=== PATIENT | male | born 1935 | race Caucasian/White ===

== ENCOUNTER 2017-11-09 15:20 | Emergency (ER) | payer OTHER ==
--- NOTE | 2017-11-09 15:48 | PDOC ---
History of Present Illness - General Chief Complaint: Pain, Acute Stated Complaint: LOWER ABD PAIN Time Seen by Provider: 11/09/17 15:25 History Source: Patient, Family Exam Limitations: No Limitations - History of Present Illness Initial Comments: 11/09/17 16:53 Patient is an 82-year-old male with past medical history of HTN, HLD, anxiety, CVA with residual right-sided weakness, who presents to the emergency department today complaining of lower abdominal pain. Patient states that his pain started 3 days ago. Patient admits that he has not been able to defecate the past 3 days and he feels that he is constipated. Patient is also being treated for a UTI at this time with Cipro. Denies nausea, vomiting, fevers, chills, frequency, urgency, hematuria, chest pain and shortness of breath. Past History - Travel Traveled outside of the country in the last 30 days: No Close contact w/someone who was outside of country & ill: No - Past Medical History Allergies/Adverse Reactions: Allergies Allergy/AdvReac Type Severity Reaction Status Date / Time No Known Allergies Allergy Verified 11/09/17 15:53 Home Medications: Ambulatory Orders Atorvastatin Calcium 20 mg PO DAILY 11/09/17 Candesartan/Hydrochlorothiazid [Atacand Hct 32-25 mg -] PO DAILY 11/09/17 Ciprofloxacin [Cipro (Restricted To Id)] 500 mg PO Q12H 11/09/17 Labetalol HCl [Normodyne -] 200 mg PO BID 11/09/17 Meloxicam 15 mg PO DAILY 11/09/17 Patient's Own Medication [Patient's Own Med (Nf) -] 1 tab PO BID 11/09/17 Polyethylene Glycol 3350 [Miralax (For Daily Use) -] 17 gm PO DAILY #1 bottle Sertraline HCl 25 mg PO DAILY 11/09/17 - Suicide/Smoking/Psychosocial Hx Smoking History: Never smoked Have you smoked in the past 12 months: No Information on smoking cessation initiated: No Hx Alcohol Use: No Drug/Substance Use Hx: No Review of Systems - Review of Systems Able to Perform ROS?: Yes Comments:: 11/09/17 16:36 CONSTITUTIONAL: Absent: fever, chills, diaphoresis, generalized weakness, malaise, loss of appetite HEENT: Absent: rhinorrhea, nasal congestion, throat pain, throat swelling, difficulty swallowing, mouth swelling, ear pain, eye pain, visual Changes CARDIOVASCULAR: Absent: chest pain, loss of consciousness, palpitations, irregular heart rate, peripheral edema RESPIRATORY: Absent: cough, shortness of breath, dyspnea with exertion, orthopnea, wheezing, stridor, hemoptysis GASTROINTESTINAL: Present: Lower abdominal pain, constipation. Absent: abdominal distension, nausea, vomiting, diarrhea, melena, hematochezia GENITOURINARY: Absent: dysuria, frequency, urgency, hesitancy, hematuria, flank pain, genital pain MUSCULOSKELETAL: Absent: myalgia, arthralgia, joint swelling SKIN: Absent: rash, itching, pallor HEMATOLOGIC/IMMUNOLOGIC: Absent: easy bleeding, easy bruising, lymphadenopathy, frequent infections ENDOCRINE: Absent: unexplained weight gain, unexplained weight loss, heat intolerance, cold intolerance NEUROLOGIC: Absent: headache, focal weakness or paresthesias, dizziness, unsteady gait, seizure, mental status changes, bladder or bowel incontinence PSYCHIATRIC: Absent: anxiety, depression, suicidal or homicidal ideation, hallucinations. Is the patient limited Swedish proficient: No *Physical Exam - Vital Signs Last Vital Signs Temp Pulse Resp BP Pulse Ox 98.2 F 56 L 16 148/126 100 11/09/17 15:43 11/09/17 15:43 11/09/17 15:43 11/09/17 15:43 11/09/17 15:43 - Physical Exam Comments: 11/09/17 16:42 GENERAL: Well developed, well nourished. Awake and alert. No acute distress. HEENT: Normocephalic, atraumatic. PERRLA, EOMI. No conjunctival pallor. Sclera are non- icteric. Moist mucous membranes. Oropharynx is clear. NECK: Supple. Full ROM. No JVD. Carotid pulses 2+ and symmetric, without bruits. No thyromegaly. No lymphadenopathy. CARDIOVASCULAR: Regular rate and rhythm. No murmurs, rubs, or gallops. Distal pulses are 2+ and symmetric. PULMONARY: No evidence of respiratory distress. Lungs clear to auscultation bilaterally. No wheezing, rales or rhonchi. ABDOMINAL: TTP of the lower abdomen LLQ, suprapubic tenderness, RLQ. Abdomen mildly distended. Soft. No rebound or guarding. No organomegaly. Normoactive bowel sounds. MUSCULOSKELETAL Normal range of motion at all joints. No bony deformities or tenderness. No CVA tenderness. EXTREMITIES: No cyanosis. No clubbing. No edema. No calf tenderness. SKIN: Warm and dry. Normal capillary refill. No rashes. No jaundice. NEUROLOGICAL: Alert, awake, appropriate. Cranial nerves 2-12 intact. No deficits to light touch and temperature in face, upper extremities and lower extremities. No motor deficits in the in face, upper extremities and lower extremities. Normoreflexic in the upper and lower extremities. Normal speech. Toes are down- going bilaterally. Gait is normal without ataxia. PSYCHIATRIC: Cooperative. Good eye contact. Appropriate mood and affect. ED Treatment Course - LABORATORY CBC & Chemistry Diagram: 11/09/17 16:20 11/09/17 18:45 Medical Decision Making - Medical Decision Making 11/09/17 16:56 Patient is an 82-year-old male with past medical history of HTN, HLD, anxiety, CVA with residual right-sided weakness, who presents to the emergency department today complaining of lower abdominal pain. Given that the patient has not defecated in 3 days probable constipation at this time. However given abdominal distention and pain we'll obtain CT scan of abdomen and pelvis to rule out SBO, diverticulitis, stones. Basic labs drawn, morphine administered for pain, enema for constipation, and fluids started. We'll reevaluate. 11/09/17 19:00 Pain management with morphine at this time. Patient was able to drink contrast material. Currently waiting for BUN/creatinine to come back prior to sending patient to CAT scan. Case discussed with JANYE Doty for signout. Will follow CT and administer enema after CT is done. *DC/Admit/Observation/Transfer Diagnosis at time of Disposition: Constipation Qualifiers: Constipation type: unspecified constipation type Qualified Code(s): K59.00 - Constipation, unspecified - Discharge Dispostion Disposition: HOME Condition at time of disposition: Stable - Prescriptions Prescriptions: Polyethylene Glycol 3350 [Miralax (For Daily Use) -] 17 gm PO DAILY #1 bottle - Referrals - Patient Instructions Printed Discharge Instructions: DI for Constipation Additional Instructions: Follow up with Dr. Torres in 1-2 days, return to the ED if worsening. Take a laxitive for the constipation, take some fiber in your diet daily to prevent the constipation. - Post Discharge Activity
[2017-11-09] MEDS ORDERED: ONDANSETRON 4 MG/2 ML VIAL IVPUSH ONE (15:49)
[2017-11-09] MEDS ORDERED: morphine SULFATE 4 MG/ML VIAL IVPUSH ONE (15:49)
[2017-11-09] MEDS ORDERED: SODIUM CHLORIDE 1,000 ML IV STA (15:49)
[2017-11-09] MEDS ORDERED: MINERAL OIL ENEMA 133 ML ENEMA PR ONE (15:50)
[2017-11-09] MEDS ORDERED: morphine SULFATE 4 MG/ML VIAL ONE (15:55)
[2017-11-09] MEDS ORDERED: ONDANSETRON 4 MG/2 ML VIAL ONE (15:55)
[2017-11-09 15:57] VITALS: BMI 20.7
[2017-11-09 16:31] LABS: BASO % 0.7 % (0-2.0); EOS % 3.7 % (0-4.5); HEMATOCRIT 40.7 % (35.4-49); HEMOGLOBIN 13.8 GM/dL (11.7-16.9); LYMPH % 27.7 % (8-40); MCH 29.3 pg (25.7-33.7); MCHC 33.9 g/dl (32.0-35.9); MEAN CELL VOLUME 86.4 fl (80-96); MEAN PLT VOLUME 9.9 fl (7.5-11.1); MONO % 7.6 % (3.8-10.2); NEUT % 60.3 % (42.8-82.8); PLATELET COUNT 156 K/MM3 (134-434); RBC 4.71 M/mm3 (4.00-5.60); RDW 14.7 % (11.9-15.9); WHITE BLOOD COUNT 7.5 K/mm3 (4.0-10.0)
[2017-11-09 16:42] LABS: INR 1.08 (0.82-1.09); PROTHROMBIN TIME (PATIENT) 12.2 SEC (9.7-13.0)
[2017-11-09 16:51] LABS: URINE APPEARANCE CLEAR; URINE BILIRUBIN NEGATIVE (<2.0 mg/dL); URINE COLOR COLORLESS; URINE GLUCOSE (UA) NEGATIVE (NEGATIVE); URINE KETONE NEGATIVE (NEGATIVE); URINE LEUK ESTERASE NEGATIVE (NEGATIVE); URINE NITRITE NEGATIVE (NEGATIVE); URINE PROTEIN NEGATIVE (NEGATIVE); URINE UROBILINOGEN NEGATIVE mg/dL (0.2-1.0)
[2017-11-09 19:36] LABS: ALBUMIN 3.3 g/dl (3.4-5.0); ANION GAP 6 (8-16); BILIRUBIN,TOTAL 0.3 mg/dL (0.2-1.0); BLOOD UREA NITROGEN 17 mg/dL (7-18); CALCIUM 8.5 mg/dL (8.5-10.1); CHLORIDE 109 mmol/L (98-107); CO2 28 mmol/L (21-32); CREATININE 1.1 mg/dL (0.7-1.3); GLUCOSE,RANDOM 84 mg/dL (74-106); POTASSIUM 3.8 mmol/L (3.5-5.1); SGOT/AST 28 U/L (15-37); SGPT/ALT 52 U/L (12-78); SODIUM 143 mmol/L (136-145); TOT PROT 6.4 g/dl (6.4-8.2)
[2017-11-09 19:38] LABS: ALK PHOS 86 U/L (45-117)
[2017-11-09 22:23] VITALS: BP 176/74; PULSE 60; TEMP 98
--- NOTE | 2017-11-09 23:20 | PDOC ---
*Physical Exam - Vital Signs Last Vital Signs Temp Pulse Resp BP Pulse Ox 98 F 60 16 176/74 96 11/09/17 22:20 11/09/17 22:20 11/09/17 22:20 11/09/17 22:20 11/09/17 22:20 ED Treatment Course - LABORATORY CBC & Chemistry Diagram: 11/09/17 16:20 11/09/17 18:45 - ADDITIONAL ORDERS Additional order review: Laboratory Results 11/09/17 11/09/17 11/09/17 18:45 16:30 16:20 PT with INR INR Sodium 143 Potassium 3.8 Chloride 109 H Carbon Dioxide 28 Anion Gap 6 L BUN 17 Creatinine 1.1 Creat Clearance w eGFR > 60 Random Glucose 84 Lactic Acid 1.9 Calcium 8.5 Total Bilirubin 0.3 AST 28 ALT 52 Alkaline Phosphatase 86 Creatine Kinase 195 Creatine Kinase Index 1.5 CK-MB (CK-2) 2.93 Troponin I < 0.02 Total Protein 6.4 Albumin 3.3 L Urine Color Colorless Urine Appearance Clear Urine pH 9.0 H Ur Specific [place] 1.003 Urine Protein Negative Urine Glucose (UA) Negative Urine Ketones Negative Urine Blood Negative Urine Nitrite Negative Urine Bilirubin Negative Urine Urobilinogen Negative Ur Leukocyte Esterase Negative 11/09/17 11/09/17 16:20 16:20 PT with INR 12.20 INR 1.08 Sodium Cancelled Potassium Cancelled Chloride Cancelled Carbon Dioxide Cancelled Anion Gap Cancelled BUN Cancelled Creatinine Cancelled Creat Clearance w eGFR Cancelled Random Glucose Cancelled Lactic Acid Calcium Cancelled Total Bilirubin Cancelled AST Cancelled ALT Cancelled Alkaline Phosphatase Cancelled Creatine Kinase Creatine Kinase Index CK-MB (CK-2) Troponin I Total Protein Cancelled Albumin Cancelled Urine Color Urine Appearance Urine pH Ur Specific [place] Urine Protein Urine Glucose (UA) Urine Ketones Urine Blood Urine Nitrite Urine Bilirubin Urine Urobilinogen Ur Leukocyte Esterase 11/09/17 16:20 RBC 4.71 MCV 86.4 MCHC 33.9 RDW 14.7 MPV 9.9 Neutrophils % 60.3 Lymphocytes % 27.7 Monocytes % 7.6 Eosinophils % 3.7 Basophils % 0.7 - Medications Given in the ED: ED Medications Discontinued Medications Generic Name Dose Route Start Last Admin Trade Name Freq PRN Reason Stop Dose Admin Sodium Chloride 1,000 mls @ 1,000 mls/hr 11/09/17 15:49 11/09/17 16:24 Normal Saline - IV 11/09/17 16:48 1,000 mls/hr ASDIR STA Administration Mineral Oil 133 ml 11/09/17 15:50 11/09/17 22:42 Fleet Mineral Oil Rectal Enema - AL 11/09/17 15:51 133 ml NOW ONE Administration Morphine Sulfate 4 mg 11/09/17 15:49 11/09/17 16:24 Morphine Sulfate IVPUSH 11/09/17 15:50 4 mg ONCE ONE Administration Ondansetron HCl 4 mg 11/09/17 15:49 11/09/17 16:24 Zofran Injection IVPUSH 11/09/17 15:50 4 mg ONCE ONE Administration Medical Decision Making - Medical Decision Making 11/09/17 23:14 Patient was seen and evaluated for abd pain. CT scan is neg except for moderate stool in the colon, nonspecific pelvic free fluid. Patient was given an enema and has moderate amount of stool output. feeling better D/W family will discharge and recommend follow up with pmd and po laxitives. I discussed the physical exam findings, ancillary test results and final diagnoses with the patient. I answered all of the patient's questions. The patient was satisfied with the care received and felt comfortable with the discharge plan and treatment plan. The Patient agrees to follow up with the primary care physician within 24-72 hours. *DC/Admit/Observation/Transfer Diagnosis at time of Disposition: Constipation Qualifiers: Constipation type: unspecified constipation type Qualified Code(s): K59.00 - Constipation, unspecified - Discharge Dispostion Disposition: HOME Condition at time of disposition: Stable - Prescriptions Prescriptions: Polyethylene Glycol 3350 [Miralax (For Daily Use) -] 17 gm PO DAILY #1 bottle - Referrals - Patient Instructions Printed Discharge Instructions: DI for Constipation Additional Instructions: Follow up with Dr. Torres in 1-2 days, return to the ED if worsening. Take a laxitive for the constipation, take some fiber in your diet daily to prevent the constipation. - Post Discharge Activity
--- NOTE | 2017-11-10 12:32 | EKG ---
Test Reason : Blood Pressure : / mmHG Vent. Rate : 057 BPM Atrial Rate : 057 BPM P-R Int : 202 ms QRS Dur : 090 ms QT Int : 444 ms P-R-T Axes : 055 011 049 degrees QTc Int : 432 ms SINUS BRADYCARDIA MINIMAL VOLTAGE CRITERIA FOR LVH, MAY BE NORMAL VARIANT CANNOT RULE OUT ANTERIOR INFARCT , AGE UNDETERMINED ABNORMAL ECG NO PREVIOUS ECGS AVAILABLE Confirmed by VERA ESTEBAN MD ([id number]) on 11/10/2017 12:32:09 PM Referred By: Confirmed By:VERA ESTEBAN MD
== END 2017-11-09 23:37 | disposition home or self-care (01) ==
LOC: JER 15:20
PROC: 3E033NZ Introduction of Analgesics, Hypnotics, Sedatives into Peripheral Vein, Percutaneous Approach (ICD-10-PCS; principal; 2017-11-09)
PROC: 3E033GC Introduction of Other Therapeutic Substance into Peripheral Vein, Percutaneous Approach (ICD-10-PCS; 2017-11-09)
DX: K59.00 Constipation, unspecified (principal)
CPT/HCPCS: 36415; 74177-TC; 80053; 81003; 82550; 82553; 83605; 84484; 85025; 85610; 87086; 93005; 93010; 99283-25; J7030

== ENCOUNTER 2017-11-19 10:40 | Emergency (ER) | payer OTHER ==
[2017-11-19 11:05] VITALS: BMI 26.6
--- NOTE | 2017-11-19 11:37 | PDOC ---
Attending Attestation - Resident Resident Name: Maurice Miller - ED Attending Attestation I have performed the following: I have examined & evaluated the patient, The case was reviewed & discussed with the resident, I agree w/resident's findings & plan, Exceptions are as noted - HPI HPI: 11/19/17 13:05 The patient is a 82 year old male, with a significant PMH of HTN, HLD, anxiety and CVA with residual R sided weakness who presents to the emergency room with lower abdominal pain beginning approximately 4 days ago . Patient describes the pain as intermittent, crampy, and spasmodic lower abdominal pain for 4 days with no identifiable triggers or alleviators. Patient mentioned he came to the ER on 11/09/17 for lower abdominal pain before and CT revealed colonic fecal retention treated with enema and discharged. Pt states he has had daily BM since , including one this morning with persistence of the pain. The family states they brought him today because he appeared to have chills while the were showering him this morning. No LOC, incontinence. Daughter also notes he has had urinary frequency for 2 weeks. The patient denies chest pain, shortness of breath, headache and dizziness. Denies fever, chills, nausea, vomit, diarrhea and constipation. Denies dysuria, frequency, urgency and hematuria. Denies headache, new focal weakness or numbness. Allergies: NKDA Past surgical history: None reported Social history: Denies tobacco, alcohol and recreational drug use. PCP: None reported - Physicial Exam PE: 11/19/17 13:08 GENERAL: Awake, alert, and fully oriented, in no acute distress HEAD: No signs of trauma EYES: PERRLA, EOMI, sclera anicteric, conjunctiva clear ENT: Auricles normal inspection, hearing grossly normal, nares patent, oropharynx clear without exudates. Moist mucosa NECK: Normal ROM, supple, no lymphadenopathy, JVD, or masses LUNGS: Breath sounds equal, clear to auscultation bilaterally. No wheezes, and no crackles HEART: Regular rate and rhythm, normal S1 and S2, no murmurs, rubs or gallops ABDOMEN: Soft, nontender, normoactive bowel sounds. No guarding, no rebound. No masses. No CVAT EXTREMITIES: Normal range of motion, no edema. No clubbing or cyanosis. No cords, erythema, or tenderness NEUROLOGICAL: Normal speech, cranial nerves intact, +RUE and RLE weakness at baseline SKIN: Warm, Dry, normal turgor, no rashes or lesions noted. - Medical Decision Making 11/19/17 16:24 82yo M with MMP presents with lower abd pain, and also chills/tremors of the b/ l UE per his daughter. Vitals wnl. Exam with R sided weakness (baseline due to previous hemorrhagic stroke yrs ago), otherwise no abd ttp. Rectal exam with soft stool in vault, no evidence of impaction. CTAP reading with possible impaction and large stool burden but no hard, impacted stool on physical exam, and pt with 2 solid BMs while in the ED. Given tremors and hx hemorrhagic CVA, will check CTH to look for gross abnormalities. If negative, will DC pt with neuro referral, bowel regimen and PMD f/u. 11/19/17 17:00 CT pending, case signed out to evening attending for CTH f/u and dispo
--- NOTE | 2017-11-19 11:43 | PDOC ---
History of Present Illness - General Chief Complaint: Pain Stated Complaint: ABD PAIN Time Seen by Provider: 11/19/17 11:28 - History of Present Illness Initial Comments: 11/19/17 11:40 82 yo M with h/o HTN, HLD, anxiety, CVA with residual R sided weakness who p/w lower abdominal pain. Patient with 4 days of intermittent, spasmodic, lower abdominal pain x 4 days with no identifiable triggers or alleviators. Last BM this AM, and normal flatulence. Absent BPR. Recent ED encounter 11/09/17 with lower abdominal pain and. CT AP revealed colonic fecal retention treated with enema and discharged. Pain consistent with prior ED encounter ( pain was unremitting at that time). Daughter also notes that patient was "shaking" in his sleep, but patient denies. Patient denies N/V, F,C, CP, SOB, urinary complaints, hematuria, diarrhea, constipation, BPR, lightheadedness, weakness, sensory changes. PMHx: as noted above. Denies h/o abdominal surgery. Does not f/w GI ROS: as noted SHx: Denies Etoh, tobacco, IVDA. Denies recent travel or change in diet. Allergies: NKDA Past History - Past Medical History Allergies/Adverse Reactions: Allergies Allergy/AdvReac Type Severity Reaction Status Date / Time No Known Allergies Allergy Verified 11/19/17 10:57 Home Medications: Ambulatory Orders Atorvastatin Calcium 20 mg PO DAILY 11/09/17 Candesartan/Hydrochlorothiazid [Atacand Hct 32-25 mg -] 0.5 tablet PO DAILY Patient's Own Medication [Patient's Own Med (Nf) -] 1 tab PO BID 11/09/17 Sertraline HCl 25 mg PO DAILY 11/09/17 Labetalol HCl [Normodyne -] 200 mg PO BID 11/19/17 Polyethylene Glycol 3350 [Miralax (For Daily Use) -] 17 gm PO DAILY #1 bottle Sennosides/Docusate Sodium [Senna-Docusate Sodium Tablet] 1 each PO DAILY #30 tablet MDD 1 tab 11/19/17 CVA: Yes (8 months ago) COPD: No - Immunization History Immunization Up to Date: No - Suicide/Smoking/Psychosocial Hx Smoking History: Unknown if ever smoked Have you smoked in the past 12 months: No Hx Alcohol Use: No Drug/Substance Use Hx: No Substance Use Type: None Review of Systems - Review of Systems Comments:: 11/19/17 11:43 GENERAL/CONSTITUTIONAL: No fever or chills. No weakness. HEAD, EYES, EARS, NOSE AND THROAT: No change in vision. No ear pain or discharge. No sore throat. CARDIOVASCULAR: No chest pain or shortness of breath RESPIRATORY: No cough, wheezing, or hemoptysis. GASTROINTESTINAL: + Abdominal pain. No nausea, vomiting, diarrhea or constipation. GENITOURINARY: No dysuria, frequency, or change in urination. MUSCULOSKELETAL: No joint or muscle swelling or pain. No neck or back pain. SKIN: No rash NEUROLOGIC: No headache, vertigo, loss of consciousness, or change in strength/ sensation. ENDOCRINE: No increased thirst. No abnormal weight change HEMATOLOGIC/LYMPHATIC: No anemia, easy bleeding, or history of blood clots. ALLERGIC/IMMUNOLOGIC: No hives or skin allergy. *Physical Exam - Vital Signs Last Vital Signs Temp Pulse Resp BP Pulse Ox 97.9 F 58 L 22 169/73 100 11/19/17 10:40 11/19/17 10:40 11/19/17 10:40 11/19/17 10:40 11/19/17 10:40 - Physical Exam Comments: 11/19/17 11:43 GENERAL: Awake, alert, and fully oriented, in no acute distress HEAD: No signs of trauma, normocephalic, atraumatic EYES: PERRLA, EOMI, sclera anicteric, conjunctiva clear ENT: Hearing grossly normal, nares patent, oropharynx clear without exudates. Moist mucosa. NECK: Normal ROM, supple, no lymphadenopathy, JVD, or masses LUNGS: No distress, speaks full sentences, clear to auscultation bilaterally HEART: Regular rate and rhythm, normal S1 and S2, no murmurs, rubs or gallops, peripheral pulses normal and equal bilaterally. ABDOMEN: + Lower abdominal ttp. Nontender, NDS, normoactive bowel sounds. No guarding, no rebound, no rigidity. No masses. Neg CVA ttp. Rectal: Soft, brown, stool in rectal vault. Absent BPR. EXTREMITIES : Normal inspection, Normal range of motion, no edema. No clubbing or cyanosis. SKIN: Warm, Dry, normal turgor, no rashes or lesions noted ED Treatment Course - LABORATORY CBC & Chemistry Diagram: 11/19/17 11:38 11/19/17 11:38 Medical Decision Making - Medical Decision Making 11/19/17 11:55 82 yo M with h/o HTN, HLD, anxiety, CVA with residual R sided weakness who p/w lower abdominal pain. VSS, AF, A&OX3. + lower abdominal ttp. Will consider constipation, cystitis, diverticulitis, appendicitis, colitis. Low suspicion AAA , pyelonephritis, urolithiasis. ED Course: CBC, CMP UA, Urine Cx. CTAP, CTH 11/19/17 12:04 Tylenol 1000 mg, Bentyl 10 mg 11/19/17 13:15 CBC,CMP: Unremarkable LA: Neg 11/19/17 14:41 UA: Neg 11/19/17 15:18 CT AP: Fecal residue in rectal sigmoid junction. 11/19/17 15:19 Senna/Docusate sent to pharmacy. Patient stable for d/c with return precautions. Advised to f/u with GI. 11/19/17 17:24 CTH: No acute intracranial pathology. *DC/Admit/Observation/Transfer Diagnosis at time of Disposition: Abdominal pain Qualifiers: Abdominal location: lower abdomen, unspecified Qualified Code(s): R10.30 - Lower abdominal pain, unspecified Constipation Qualifiers: Constipation type: unspecified constipation type Qualified Code(s): K59.00 - Constipation, unspecified - Discharge Dispostion Condition at time of disposition: Stable Decision to Admit order: No - Prescriptions Prescriptions: Polyethylene Glycol 3350 [Miralax (For Daily Use) -] 17 gm PO DAILY #1 bottle Sennosides/Docusate Sodium [Senna-Docusate Sodium Tablet] 1 each PO DAILY #30 tablet MDD 1 tab - Referrals Referrals: Adrian Romano DO [Staff Physician] - - Patient Instructions Printed Discharge Instructions: DI for Abdominal Pain-Adult, DI for Constipation Additional Instructions: Please return to the emergency department with any new or worsening symptoms or concerns. Please follow up with your primary care physician within 72 hours. Please follow up with gastroenterology within one week. Please take senna/ docusate, and miralax daily. - Post Discharge Activity - Attestations Physician Attestion: 11/19/17 11:43 I attest to the information provided in this note.
[2017-11-19 11:44] LABS: BASO % 0.4 % (0-2.0); EOS % 2.9 % (0-4.5); HEMATOCRIT 41.6 % (35.4-49); LYMPH % 17.3 % (8-40); MCH 29.1 pg (25.7-33.7); MCHC 33.7 g/dl (32.0-35.9); MEAN CELL VOLUME 86.5 fl (80-96); MEAN PLT VOLUME 10.2 fl (7.5-11.1); MONO % 6.2 % (3.8-10.2); NEUT % 73.2 % (42.8-82.8); PLATELET COUNT 174 K/MM3 (134-434); RBC 4.81 M/mm3 (4.00-5.60); RDW 14.4 % (11.9-15.9); WHITE BLOOD COUNT 7.8 K/mm3 (4.0-10.0)
[2017-11-19 12:00] LABS: ALBUMIN 3.4 g/dl (3.4-5.0); ALK PHOS 87 U/L (45-117); ANION GAP 9 (8-16); BILIRUBIN,TOTAL 0.5 mg/dL (0.2-1.0); BLOOD UREA NITROGEN 17 mg/dL (7-18); CALCIUM 8.8 mg/dL (8.5-10.1); CHLORIDE 106 mmol/L (98-107); CO2 29 mmol/L (21-32); GLUCOSE,RANDOM 83 mg/dL (74-106); POTASSIUM 3.7 mmol/L (3.5-5.1); SGOT/AST 36 U/L (15-37); SGPT/ALT 58 U/L (12-78); SODIUM 144 mmol/L (136-145); TOT PROT 6.9 g/dl (6.4-8.2)
[2017-11-19] MEDS ORDERED: ACETAMINOPHEN 325 MG TABLET (FP) PO ONE (12:03)
[2017-11-19] MEDS ORDERED: DICYCLOMINE HCL 10 MG CAPSULE PO ONE (12:03)
[2017-11-19] MEDS ORDERED: ACETAMINOPHEN 325 MG TABLET (FP) ONE (12:05)
[2017-11-19] MEDS ORDERED: DICYCLOMINE HCL 10 MG CAPSULE ONE (12:06)
[2017-11-19] MEDS ORDERED: SODIUM CHLORIDE 1,000 ML IV STA (12:27)
[2017-11-19 13:45] LABS: URINE APPEARANCE CLEAR; URINE BILIRUBIN NEGATIVE (<2.0 mg/dL); URINE COLOR STRAW; URINE GLUCOSE (UA) NEGATIVE (NEGATIVE); URINE KETONE NEGATIVE (NEGATIVE); URINE LEUK ESTERASE NEGATIVE (NEGATIVE); URINE NITRITE NEGATIVE (NEGATIVE); URINE PROTEIN NEGATIVE (NEGATIVE); URINE UROBILINOGEN NEGATIVE mg/dL (0.2-1.0)
[2017-11-19] MEDS ORDERED: ACETAMINOPHEN 1000 MG/100 ML VIAL (NON FORMULARY) IVPB ONE (14:41)
[2017-11-19] MEDS ORDERED: ACETAMINOPHEN INJECTION 100 ML IVPB ONE (14:42)
[2017-11-19 17:34] VITALS: PULSE 61; TEMP 97.8
[2017-11-19 18:32] VITALS: BP 143/66
--- NOTE | 2017-11-23 10:16 | EKG ---
Test Reason : Blood Pressure : / mmHG Vent. Rate : 056 BPM Atrial Rate : 056 BPM P-R Int : 198 ms QRS Dur : 082 ms QT Int : 430 ms P-R-T Axes : 058 014 047 degrees QTc Int : 414 ms SINUS BRADYCARDIA NONSPECIFIC ST AND T WAVE ABNORMALITY ABNORMAL ECG WHEN COMPARED WITH ECG OF 09-NOV-2017 15:44, NO SIGNIFICANT CHANGE WAS FOUND Confirmed by TIM ROBLES MD ([id number]) on 11/23/2017 10:15:33 AM Referred By: Confirmed By:TIM ROBLES MD
== END 2017-11-19 18:57 | disposition home or self-care (01) ==
LOC: JER 10:40
PROC: 3E0337Z Introduction of Electrolytic and Water Balance Substance into Peripheral Vein, Percutaneous Approach (ICD-10-PCS; principal; 2017-11-19)
PROC: 3E033NZ Introduction of Analgesics, Hypnotics, Sedatives into Peripheral Vein, Percutaneous Approach (ICD-10-PCS; 2017-11-19)
DX: K59.00 Constipation, unspecified (principal); I10 Essential (primary) hypertension; E78.00 Pure hypercholesterolemia, unspecified; F41.9 Anxiety disorder, unspecified; I69.851 Hemiplegia and hemiparesis following other cerebrovascular disease affecting right dominant side
CPT/HCPCS: 36415; 70450-TC; 74177-TC; 80053; 81003; 83605; 83735; 85025; 87086; 93005; 93010; 99283-25; J0131; J7030